=== PATIENT | male | born 1990 | race Caucasian/White ===

== ENCOUNTER 2023-10-11 22:07 | Observation (INO) | payer BC ==
[2023-10-11] MEDS ORDERED: Sodium Chloride 0.9% 10 ML Syringe FLUSH PRN (22:52)
[2023-10-11 23:21] LABS: BASOPHILS ABSOLUTE AUTO 0.1 K/mm3 (0.0-0.2); BASOPHILS PERCENT AUTO 0.7 % (0.0-1.0); EOSINOPHILS ABSOLUTE AUTO 0.1 K/mm3 (0.0-0.4); EOSINOPHILS PERCENT AUTO 0.9 % (0.0-6.0); HEMATOCRIT 46.1 % (42.0-52.0); HEMOGLOBIN 15.6 gm/dl (14.0-18.0); IMMATURE GRAN ABSOLUTE AUTO 0.03 K/mm3 (0.00-0.05); IMMATURE GRAN PERCENT AUTO 0.3 % (0.0-0.4); LYMPHOCYTES ABSOLUTE AUTO 1.7 K/mm3 (1.0-4.8); LYMPHOCYTES PERCENT AUTO 17.7 % (24.0-44.0); MEAN CORPUSCULAR HGB CONC 33.8 g/dl (32.0-36.0); MEAN CORPUSCULAR VOLUME 91.5 fl (83.0-99.0); MEAN PLATELET VOLUME 9.7 fl (9.4-12.4); NEUTROPHILS ABSOLUTE AUTO 6.9 K/mm3 (1.8-7.7); NEUTROPHILS PERCENT AUTO 70.4 % (41.0-71.0); PLATELET COUNT,PLT 216 K/mm3 (150-400); RED BLOOD CELL COUNT 5.04 M/mm3 (4.52-5.90); WHITE BLOOD CELL COUNT,WBC 9.82 K/mm3 (3.9-11.3)
[2023-10-11] MEDS: Alum Hydrox/Mag Hydrox/Simeth 30 ML, Lidocaine 2% 15 ML PO ONE (23:29)
[2023-10-11] MEDS: Famotidine 20 MG Tab PO ONE (23:29)
[2023-10-11 23:42] LABS: A/G RATIO 0.7 (1-2); ALBUMIN 3.4 g/dl (3.4-5.0); ANION GAP 11.4 (5-15); BUN/CREATININE RATIO 9.2 (14-18); CALCIUM 9.4 mg/dL (8.5-10.1); CREATININE 1.3 mg/dL (0.7-1.3); EST CRCL DRUG DOSING (CG) 77.46 mL/min; POTASSIUM,K 4.4 mEq/L (3.5-5.1); PROTEIN TOTAL,TP 8.4 g/dl (6.4-8.2)
[2023-10-12] MEDS: Sodium Chloride 0.9% 1,000 ML IV ONE ×2 (00:38→03:42)
[2023-10-12] MEDS: Ketorolac 15 MG/ML SDV IVPUSH ONE (00:50)
[2023-10-12] MEDS: Iopamidol 612 MG/ML 30 ML SDV IVPUSH ONE (01:00)
[2023-10-12] MEDS: Iopamidol 612 MG/ML 100 ML Bottle IVPUSH ONE (01:00)
[2023-10-12 02:59] LABS: APPEARANCE,URINE CLEAR (Clear); BILIRUBIN,URINE NEGATIVE (Negative); COLOR,URINE YELLOW (Yellow); GLUCOSE,URINE NEGATIVE (Negative); KETONES,URINE NEGATIVE (Negative); LEUKOCYTE ESTERASE,URINE NEGATIVE (Negative); NITRITE,URINE NEGATIVE (Negative); OCCULT BLOOD,URINE NEGATIVE (Negative); PROTEIN,URINE TRACE (Negative); UROBILINOGEN,URINE 0.2 (0.2-1.0)
[2023-10-12 03:20] LABS: RBC,URINE 0-5 /hpf (0-5)
[2023-10-12 03:21] LABS: BACTERIA,URINE FEW /hpf (FEW); EPITHELIAL CELLS,URINE 0-5 /hpf (0-5); MUCUS,URINE RARE /hpf (FEW); WBC,URINE 0-5 /hpf (0-5)
[2023-10-12] MEDS: Morphine 4 MG/ML Syringe IVPUSH ONE (03:45)
[2023-10-12] MEDS: Lactated Ringers 1,000 ML IV SCH (08:14)
[2023-10-12] MEDS ORDERED: Melatonin 3 MG Tab PO PRN (08:31)
[2023-10-12] MEDS ORDERED: Sennosides/Docusate Sodium 50-8.6 MG Tab PO PRN (08:31)
[2023-10-12] MEDS ORDERED: Ondansetron 4 MG Tab.DIS PO PRN (08:31)
[2023-10-12] MEDS ORDERED: Acetaminophen 325 MG Tab PO PRN (08:37)
[2023-10-12 08:50] LABS: HEMOGLOBIN A1C 5.4 %
[2023-10-12 09:01] LABS: CHOLESTEROL HDL 37 mg/dL (40-59); CHOLESTEROL LDL DIRECT 132 mg/dL (<100); CHOLESTEROL TOTAL 186 mg/dL (<200); TRIGLYCERIDES 89 mg/dL (<150)
[2023-10-12] MEDS: Enoxaparin 40 MG/0.4 ML Syringe SUBCUT SCH (12:28)
[2023-10-13] MEDS: Ketorolac 30 MG/ML SDV IVPUSH PRN (02:13)
[2023-10-13 05:43] LABS: HEMATOCRIT 40.3 % (42.0-52.0); MEAN CORPUSCULAR HEMOGLOBIN 31.3 pg (28.0-32.0); MEAN CORPUSCULAR HGB CONC 33.7 g/dl (32.0-36.0); MEAN CORPUSCULAR VOLUME 92.9 fl (83.0-99.0); MEAN PLATELET VOLUME 9.8 fl (9.4-12.4); PLATELET COUNT,PLT 197 K/mm3 (150-400); RED BLOOD CELL COUNT 4.34 M/mm3 (4.52-5.90); WHITE BLOOD CELL COUNT,WBC 8.08 K/mm3 (3.9-11.3)
[2023-10-13 05:50] LABS: HEMOGLOBIN 13.6 gm/dl (14.0-18.0)
[2023-10-13 06:06] LABS: A/G RATIO 0.6 (1-2); ALBUMIN 2.7 g/dl (3.4-5.0); ANION GAP 13.4 (5-15); BILIRUBIN TOTAL 0.9 mg/dL (0.2-1.0); CALCIUM 8.7 mg/dL (8.5-10.1); CREATININE 1.2 mg/dL (0.7-1.3); EST CRCL DRUG DOSING (CG) 86.74 mL/min; MAGNESIUM 1.8 mg/dL (1.8-2.4); PHOSPHORUS 3.6 mg/dL (2.6-4.7); POTASSIUM,K 4.4 mEq/L (3.5-5.1)
== END 2023-10-13 10:43 | disposition home or self-care (01) ==
LOC: JD.ED 22:07 → JD.MS 10-12 07:02
PROVIDERS: ADMIT Student in an Organized Health Care Education/Training Program; ATTEND Student in an Organized Health Care Education/Training Program
DX: K85.20 Alcohol induced acute pancreatitis without necrosis or infection (principal); K76.0 Fatty (change of) liver, not elsewhere classified; N20.0 Calculus of kidney
CPT/HCPCS: 36415; 74177; 80053; 80061; 81001; 82947; 83036; 83690; 83735; 84100; 85025; 85027; 94760; 96374; 96375; 99285; A9270; J1650; J1885; J2270; J7030; J7120; Q9967